=== PATIENT | male | born 2000 | race Caucasian/White ===

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

== ENCOUNTER 2020-05-28 19:08 | Emergency (ER) | payer OTHER, SELFPAY ==
[2020-05-28 19:11] VITALS: BP 125/72; PULSE 84; RESP 18; TEMP 36.9; O2SAT 100
--- NOTE | 2020-05-28 19:52 | ED.ALLEREA ---
HPI - Allergic Reaction General Chief complaint: Allergic Reaction Stated complaint: allergic reaction Time Seen by Provider: 05/28/20 19:14 Source: patient Mode of arrival: ambulatory Limitations: no limitations History of Present Illness HPI narrative: Patient is a 20-year-old male complaining of itching, rash on his anterior chest and abdominal area, which she also states feels like his abdomen swollen but has subsided since. Patient states that he was eating [employer] and did not know the burrito he ate had egg in it, he is allergic to egg. Patient denies any lip, tongue, throat or facial swelling. Patient denies any dysphagia. Patient denies any shortness of breath. Patient had similar events in the past when he was accidentally exposed to eggs. Related Data Home Medications Medication Instructions Recorded Confirmed pyridostigmine bromide 60 mg DAILY 12/01/19 12/01/19 beclomethasone dipropionate [Qvar INHALATION 05/28/20 RediHaler] Allergies Allergy/AdvReac Type Severity Reaction Status Date / Time egg Allergy Severe Anaphylactic Verified 05/28/20 19:15 Shock Review of Systems Review of Systems: All systems reviewed & are unremarkable except as noted in HPI and below Constitutional: Constitutional: Denies body ache(s), Denies chills, Denies excessive sweating, Denies fatigue, Denies fever(s), Denies headache(s), Denies lethargy, Denies malaise, Denies weakness and Denies weight loss Eyes: Eyes: Denies blurry vision, Denies change in vision and Denies loss of vision ENT: Denies dizziness, Denies ear discharge, Denies headache(s), Denies lip swelling, Denies epistaxis, Denies nasal congestion, Denies neck pain, Denies throat swelling and Denies tongue swelling Cardiovascular: Cardiovascular: Denies chest pain, Denies chest pain at rest, Denies chest pain with activity, Denies diaphoresis, Denies rapid heart rate, Denies edema, Denies irregular heart rhythm, Denies lightheadedness, Denies palpitations, Denies dyspnea and Denies dyspnea on exertion Respiratory: Respiratory: Denies chest congestion, Denies cough, Denies hemoptysis, Denies dyspnea and Denies dyspnea on exertion Gastrointestinal: Gastrointestinal: Denies abdominal pain, Denies melena, Denies hematochezia, Denies diarrhea, Denies nausea, Denies vomiting and Denies hematemesis Musculoskeletal: Musculoskeletal: Denies abnormal gait, Denies deformity, Denies joint swelling, Denies limited range of motion, Denies neck pain and Denies numbness Neurologic: Denies Abnormal speech present, Denies abnormal gait, Denies confusion, Denies dizziness, Denies headache(s), Denies focal weakness, Denies loss of vision, Denies numbness, Denies Other visual disturbances, Denies Sensory deficit (Neuro) and Denies weakness Psychiatric: Psychiatric: Denies confusion, Denies depression, Denies auditory hallucinations, Denies homicidal ideation and Denies suicidal ideation Endocrine: Endocrine: Denies cold intolerance, Denies excessive sweating, Denies fatigue, Denies heat intolerance and Denies palpitations Hematologic/Lymphatic: Hematologic/Lymphatic: Denies easy bleeding and Denies easy bruising Allergic/Immunologic: Allergic/Immunologic: Denies lip swelling, Denies throat swelling and Denies tongue swelling PMFSH Past Medical History Medical History Asthma Autism High functional Eczema Myasthenia gravis Surgical History Surgical History History of dental surgery Family History Family History Mother Family history of thyroid disease Family history of arthritis Father Hypertension Grandparent Hypertension Asthma Social History Social History Smoking status: Never smoker Tobacco type: cigarettes Alcohol intake: current Sub
[2020-05-28] MEDS: methylPREDNISolone SOD SUCC 125 MG VIAL IV PUSH (19:55)
[2020-05-28] MEDS: FAMOTIDINE 20 MG/2 ML VIAL IV PUSH (19:55)
[2020-05-28 20:31] VITALS: BP 124/75; PULSE 68; RESP 18; O2SAT 97
== END 2020-05-28 20:32 | disposition home or self-care (01) ==
PROVIDERS: Emergency Provider Emergency Medicine; PCP Internal Medicine
DX: T78.40XA Allergy, unspecified, initial encounter (principal); F84.0 Autistic disorder; G70.00 Myasthenia gravis without (acute) exacerbation; Z91.012 Allergy to eggs
CPT/HCPCS: 96374; 96375; 99284; J2930

== ENCOUNTER 2022-02-23 20:19 | Emergency (ER) | payer OTHER, SELFPAY ==
[2022-02-23] VITALS (9 sets, daily range): BP systolic 109–126; BP diastolic 58–81; PULSE 75–97; RESP 16–21; TEMP 37.1; O2SAT 98–100
--- NOTE | 2022-02-23 20:40 | ED.ALLEREA ---
HPI - Allergic Reaction General Chief complaint: Allergic Reaction <JOSH Wells Last Filed: 02/23/22 22:47> Stated complaint: allergic reaction <JOSH Wells Last Filed: 02/23/22 22:47> Time Seen by Provider: 02/23/22 20:34 <JOSH Wells Last Filed: 02/23/22 22:47> Source: patient <JOSH Wells Last Filed: 02/23/22 22:47> Mode of arrival: ambulatory <JOSH Wells Last Filed: 02/23/22 22:47> Limitations: no limitations <JOSH Wells Last Filed: 02/23/22 22:47> History of Present Illness HPI narrative: This is a 21-year-old male that presents to the emergency department for allergic reaction. Reports he ate a wrap at a restaurant that he was unaware continued mayonnaise. He has severe allergy to eggs. He started to feel swelling of his lips and eyelids. He reports diffuse itching. He has also started to note feelings of swelling and tingling in his throat. He has not taken any medications or used his EpiPen. Denies, vomiting, or diarrhea. <JOSH Wells Last Filed: 02/23/22 22:47> Related Data Home medications: Home Medications Medication Instructions Recorded Confirmed pyridostigmine bromide 60 mg tablet 60 mg DAILY 12/01/19 02/10/21 beclomethasone dipropionate 40 inhalation 05/28/20 02/10/21 mcg/actuation HFA breath activated aerosol (Qvar RediHaler) cetirizine 10 mg tablet (Zyrtec) 10 mg PO DAILY PRN 11/15/20 02/10/21 <JOSH Wells Last Filed: 02/23/22 22:47> Allergies/adverse reactions: Allergies Allergy/AdvReac Type Severity Reaction Status Date / Time egg Allergy Severe Anaphylactic Verified 05/28/20 19:15 Shock <JOSH Wells Last Filed: 02/23/22 22:47> Review of Systems Review of Systems: CONSTITUTIONAL: Denies fever RESPIRATORY: Denies dyspnea. SKIN: Reports rash and itching. PSYCHIATRIC: Reports anxiety <Nanette Singleton PA-C - Last Filed: 02/23/22 22:47> All systems reviewed & are unremarkable except as noted in HPI and below <Nanette Singleton PA-C - Last Filed: 02/23/22 22:47> PMFSH Past Medical History Medical History: Medical History (Reviewed 02/09/21 @ 15:43 by Mercedes Walton [facility]) Asthma Autism High functional Eczema Myasthenia gravis <Nanette Singleton PA-C - Last Filed: 02/23/22 22:47> Surgical History Surgical History: Surgical History (Reviewed 02/09/21 @ 15:43 by Mercedes Walton [facility]) History of dental surgery <Nanette Singleton PA-C - Last Filed: 02/23/22 22:47> Family History Family History: Family History (Reviewed 02/09/21 @ 15:43 by Mercedes Walton [facility]) Mother Family history of thyroid disease Family history of arthritis Father Hypertension Grandparent Hypertension Asthma <Nanette Singleton PA-C - Last Filed: 02/23/22 22:47> Social History Social History: Social History (Updated 02/23/22 @ 20:42 by Nanette Singleton PA-C) Smoking status: Never smoker Alcohol intake: current Substance use: never Gender identity (if verbalized by the patient): Male Sexual Orientation (if Verbalized by the Patient): Straight or Heterosexual <Nanette Singleton PA-C - Last Filed: 02/23/22 22:47> Exam Narrative: GENERAL: Well-appearing, well-nourished, and in no acute distress. HEAD: Normocephalic, atraumatic. EYES: EOMI. ENT: Nares clear, no rhinorrhea or epistaxis. Mucous membranes moist. Oropharynx without tonsillar hypertrophy exudate or other lesions. Mild swelling of the lips noted. No tongue or throat swelling NECK: Supple. No adenopathy or masses. CHEST: Clear to auscultation. No respiratory distress. No wheezes rales or rhonchi HEART: Regular rate and rhythm. No murmur heard. Normal peripheral pulses. EXTREMITIES: Normal range of motion. No edema. SKIN: Warm, dry, no rash. Papular rash noted on the upper arms and chest NEURO: No focal deficits. Alert and orie
[2022-02-23] MEDS: FAMOTIDINE 20 MG/2 ML VIAL IV PUSH (20:49)
[2022-02-23] MEDS: methylPREDNISolone SOD SUCC 125 MG VIAL IV PUSH (20:49)
[2022-02-23] MEDS: EPINEPHrine HCL INJ 1 MG/ML AMPUL 0.3 MG IM (20:49)
[2022-02-23] MEDS: diphenhydrAMINE HCl INJ 50 MG/ML VIAL 25 MG IV PUSH (20:49)
== END 2022-02-23 22:56 | disposition home or self-care (01) ==
PROVIDERS: Emergency Provider Preventive Medicine Aerospace Medicine; PCP Internal Medicine
DX: T78.1XXA Other adverse food reactions, not elsewhere classified, initial encounter (principal); R22.0 Localized swelling, mass and lump, head; J45.909 Unspecified asthma, uncomplicated; F84.0 Autistic disorder; G70.00 Myasthenia gravis without (acute) exacerbation; Z91.012 Allergy to eggs
CPT/HCPCS: 96372; 96374; 96375; 99284; J0171; J1200; J2930